=== PATIENT | female | born 1935 | race Caucasian/White ===

== ENCOUNTER 2018-10-18 01:52 | Inpatient (IN) | payer MEDICARE, MEDICAID ==
[~2018-10-18] VITALS: Ht 160 cm; Wt 73.0 kg
--- NOTE | 2018-10-18 02:02 | NUR ---
PT [id number] FROM HOME C/O NONRADIATING SHARP CP X 1 HOUR. DENIES SOB, HAS HX OF HI. 0/10 PAIN GIVEN NITRO X 1 AND ASA 325MG BEAD MAKER. PT AOX4. NAD NOTED. RESP EVEN AND UNLABORED. DENIES PAIN NOW. PT ON MONITOR IN BED 2. WILL CONTINUE TO MONITOR.
--- NOTE | 2018-10-18 02:09 | NUR ---
TECH AT BEDSIDE FOR EKG
--- NOTE | 2018-10-18 02:13 | NUR ---
FAMILY AT BEDSIDE
--- NOTE | 2018-10-18 02:20 | NUR ---
PHLEB AT BEDSIDE FOR LAB DRAW
--- NOTE | 2018-10-18 02:31 | NUR ---
RADIOLOGY AT BEDSIDE FOR XRAY
[2018-10-18 02:47] LABS: CALCIUM, SERUM 9.5 mg/dL (8.5-10.1); CARBON DIOXIDE 27 mmol/L (21-32); CHLORIDE 102 mmol/L (98-107); GLUCOSE 143 mg/dL (74-106); POTASSIUM 4.5 mmol/L (3.5-5.1); SODIUM SERUM 139 mmol/L (136-145); UREA NITROGEN, BLOOD 16 mg/dL (7-18)
[2018-10-18 02:49] LABS: BASOPHILS # (AUTO) 0.1 /CMM (0.0-0.2); BASOPHILS % (AUTO) 0.7 % (0.0-2.0); EOSINOPHILS % (AUTO) 2.3 % (0.0-6.0); HEMATOCRIT 38 % (33-45); HEMOGLOBIN 12.5 g/dL (11.5-14.8); LYMPHOCYTES # (AUTO) 2.4 /CMM (0.8-4.8); LYMPHOCYTES % (AUTO) 24.4 % (20.0-44.0); MEAN CORPUSCULAR HGB CONC 33 g/dl (31.0-36.0); MEAN CORPUSCULAR VOLUME 82 fL (82-100); MONOCYTES # (AUTO) 0.7 /CMM (0.1-1.30); MONOCYTES % (AUTO) 6.9 % (2.0-12.0); NEUTROPHILS # (AUTO) 6.3 /CMM (1.8-8.9); NEUTROPHILS % (AUTO) 65.7 % (43.0-81.0); PLATELET COUNT (AUTO) 284 /CMM (150-450); RED BLOOD CELL COUNT(AUTO) 4.67 MIL/uL (4.0-5.2); WHITE BLOOD COUNT (AUTO) 9.6 K/uL (4.3-11.0)
[2018-10-18 03:00] LABS: ALANINE AMINOTRANSFERASE 34 U/L (12-78); ALBUMIN 3.7 g/dL (3.4-5.0); ALKALINE PHOSPHATASE 70 U/L (46-116); ASPARTATE AMINOTRANSFERASE 17 U/L (15-37); B-TYPE NATRIURETIC PEPTIDE 366 PG/ML (0-125); BILIRUBIN,TOTAL 0.2 mg/dL (0.2-1.0); TOTAL PROTEIN, SERUM 7.6 g/dL (6.4-8.2)
--- NOTE | 2018-10-18 03:05 | NUR ---
PT WILL GO TO RM 309-2
--- NOTE | 2018-10-18 03:26 | NUR ---
REPORT GIVEN TO BRAD VALENCIA FOR PARAM
[2018-10-18] MEDS ORDERED: ASPIRIN 325 MG TABLET PO ONE (03:30)
[2018-10-18] MEDS ORDERED: ASPIRIN 325 MG TABLET ONE (03:32)
[2018-10-18 04:00] VITALS: BP 134/67
--- NOTE | 2018-10-18 04:15 | NUR ---
RN OPENING NOTES Pt ARRIVED TO THE FLOOR VIA ER KAREN. Pt WAS ABLE TO WALK WITH STEADY GAIT TO ROOM BED. Pt IS A/OX4, VERBAL, UZBEK SPEAKING ONLY. DAUGHTER IN LAW AT BEDSIDE ABLE TO TRANSLATE FOR Pt. NO S/S OF ACUTE DISTRESS OR SOB NOTED. ON TELE MONITOR, READING SR 64. NO C/O CP AT THIS TIME. IV ACCESS ON R HAND #20G, SL. SAFETY MEASURES IN PLACE. BED LOW, LOCKED, HOB ELEVATED, SIDE RAILS UP, CALL LIGHT AND BEDSIDE TABLE WITHIN REACH. BED ALARM ON. WILL CONTINUE TO MONITOR Pt's CONDITION AND SAFETY THROUGHOUT THE NIGHT.
[2018-10-18 05:00] VITALS: BP 134/67
[2018-10-18] MEDS ORDERED: MORPHINE SULFATE INJ 2 MG/ML DISP.SYRIN IV PRN (05:00)
[2018-10-18] MEDS ORDERED: ONDANSETRON HCL/PF 4 MG/2 ML VIAL IVP PRN (05:00)
[2018-10-18] MEDS ORDERED: ACETAMINOPHEN 325 MG TABLET PO PRN (05:00)
[2018-10-18] MEDS ORDERED: MAGNESIUM HYDROXIDE 30 ML UDC PO PRN (05:00)
[2018-10-18] MEDS ORDERED: CLONIDINE HCL 0.1 MG TABLET PO PRN (05:00)
[2018-10-18] MEDS ORDERED: TEMAZEPAM 7.5 MG CAPSULE PO PRN (05:00)
[2018-10-18] MEDS ORDERED: Z GUARD REMEDY 2 OZ OINT TP PRN (05:00)
[2018-10-18] MEDS ORDERED: ASPI-605 PO (05:17)
[2018-10-18] MEDS ORDERED: CLOP75TA15 PO (05:17)
--- NOTE | 2018-10-18 06:40 | NUR ---
RN CLOSING NOTES NO SIGNIFICANT CHANGES IN Pt's CONDITION. Pt REMAINS STABLE AT THIS TIME. NO S/S OF ACUTE DISTRESS OR SOB NOTED DURING THE NIGHT. Pt IS AWAKE, RESTING IN BED. RESPIRATIONS EVEN AND UNLABORED. NO C/O CP AT THIS TIME. WILL ENDORSE TO DAYSHIFT RN FOR Pt's PARAM. TELE READING SR 70.
[2018-10-18 07:16] LABS: BASOPHILS % (AUTO) 0.5 % (0.0-2.0); EOSINOPHILS % (AUTO) 1.9 % (0.0-6.0); HEMATOCRIT 34 % (33-45); HEMOGLOBIN 11.2 g/dL (11.5-14.8); LYMPHOCYTES # (AUTO) 2.5 /CMM (0.8-4.8); LYMPHOCYTES % (AUTO) 29.8 % (20.0-44.0); MEAN CORPUSCULAR HGB CONC 33 g/dl (31.0-36.0); MEAN CORPUSCULAR VOLUME 83 fL (82-100); MONOCYTES # (AUTO) 0.7 /CMM (0.1-1.30); MONOCYTES % (AUTO) 8.5 % (2.0-12.0); NEUTROPHILS # (AUTO) 4.9 /CMM (1.8-8.9); NEUTROPHILS % (AUTO) 59.3 % (43.0-81.0); PLATELET COUNT (AUTO) 245 /CMM (150-450); RED BLOOD CELL COUNT(AUTO) 4.13 MIL/uL (4.0-5.2); WHITE BLOOD COUNT (AUTO) 8.2 K/uL (4.3-11.0)
[2018-10-18 07:28] LABS: ALANINE AMINOTRANSFERASE 29 U/L (12-78); ALBUMIN 3.3 g/dL (3.4-5.0); ALKALINE PHOSPHATASE 57 U/L (46-116); ASPARTATE AMINOTRANSFERASE 14 U/L (15-37); CALCIUM, SERUM 8.9 mg/dL (8.5-10.1); CARBON DIOXIDE 26 mmol/L (21-32); CHLORIDE 103 mmol/L (98-107); CREATININE 0.9 mg/dL (0.6-1.3); GLUCOSE 115 mg/dL (74-106); PHOSPHORUS 3.8 mg/dL (2.5-4.9); POTASSIUM 4.5 mmol/L (3.5-5.1); SODIUM SERUM 139 mmol/L (136-145); TOTAL PROTEIN, SERUM 6.7 g/dL (6.4-8.2); UREA NITROGEN, BLOOD 15 mg/dL (7-18)
[2018-10-18 07:32] LABS: IRON, SERUM 36 ug/dl (50-175); TOTAL IRON BINDING CAPACITY 268 ug/dl (250-450)
[2018-10-18 07:39] LABS: CHOLESTEROL 209 mg/dL (<200); HDL CHOLESTEROL 35 mg/dL (40-60); LDL 144 mg/dL (0-99); TRIGLYCERIDES 129 mg/dL (30-150)
[2018-10-18 07:41] LABS: BILIRUBIN,TOTAL 0.2 mg/dL (0.2-1.0)
[2018-10-18] MEDS: PANTOPRAZOLE 40 MG TABLET.DR PO SCH (07:56)
[2018-10-18 08:00] VITALS: BP 121/61
--- NOTE | 2018-10-18 08:09 | NUR ---
ALTERATIONS SUPERVISOR OPENING NOTES PATEINT RECEIVED IN BED AND AWAKE. A/O X4, NO SOB OR ACUTE DISTRESS NOTED. PATIENT STATES HAVING NO CHEST PAIN AT THIS TIME. R HAND #20 SL INTACT AND PATENT. RESPIRATIONS EVEN AND UNLABORED. ON TELE SR 60'S. WILL CONTINUE TO MONITOR.
[2018-10-18] MEDS ORDERED: DOCUSATE SODIUM 100 MG CAPSULE PO SCH (09:00)
[2018-10-18] MEDS ORDERED: ASPIRIN EC 325 MG TABLET.DR PO SCH (09:00)
[2018-10-18] MEDS ORDERED: METO-358 PO (09:04)
[2018-10-18] MEDS ORDERED: ROSU20TA2 PO (09:04)
[2018-10-18] MEDS ORDERED: DOCU-270 PO (09:04)
[2018-10-18] MEDS ORDERED: CLON0.1T PO (09:04)
[2018-10-18] MEDS ORDERED: VITAMIN (09:04)
[2018-10-18] MEDS ORDERED: SITA1TAB2 PO (09:04)
[2018-10-18] MEDS ORDERED: FERR325T23 PO (09:04)
[2018-10-18] MEDS ORDERED: FENO145T35 PO (09:04)
[2018-10-18 09:16] LABS: THYROID STIMULATING HORMONE 1.683 uIU/mL (0.358-3.74)
[2018-10-18] MEDS ORDERED: IBUP-1953 PO (09:16)
[2018-10-18] MEDS: CLOPIDOGREL BISULFATE 75 MG TABLET PO SCH (09:29)
[2018-10-18] MEDS: LOSARTAN POTASSIUM 50 MG TABLET PO SCH (09:29)
[2018-10-18] MEDS: ASPIRIN EC 81 MG TABLET.DR PO SCH (09:29)
[2018-10-18] MEDS: METFORMIN 500 MG TABLET PO SCH ×2 (11:17→17:00)
[2018-10-18] MEDS: LINAGLIPTIN 5 MG TABLET PO SCH (11:17)
[2018-10-18] MEDS: ATORVASTATIN 40 MG TABLET PO SCH (11:17)
[2018-10-18] MEDS: FENOFIBRATE NANOCRYS (145 MG) 145 MG TABLET PO SCH (11:17)
[2018-10-18 12:00] VITALS: BP 124/64
[2018-10-18] MEDS ORDERED: IOHEXOL-350 100 ML VIAL IV ONE (12:00)
[2018-10-18] MEDS ORDERED: METOPROLOL TARTRATE INJ 5 MG/5 ML AMPUL IVP ONE (12:30)
[2018-10-18] MEDS ORDERED: NITROGLYCERIN 0.4 MG/TAB BOTTLE SL ONE (12:30)
[2018-10-18] MEDS ORDERED: METOPROLOL TARTRATE INJ 5 MG/5 ML AMPUL ONE ×2 (12:30→12:48)
[2018-10-18] MEDS: METOPROLOL TARTRATE 50 MG TABLET PO SCH ×2 (13:36→17:58)
[2018-10-18] MEDS: SOD FERRIC GLUC 125 MG in IV NS 0.9% 100 ML IV SCH (15:55)
[2018-10-18 16:00] VITALS: BP 99/50
--- NOTE | 2018-10-18 17:00 | NUR ---
MS SALINAS NOTE BP MEDS HELD BEFORE DIALYSIS TREATMENT. 1700 GLUCOPHAGE HELD D/T ECHO PROCEDURE EARLIER IN DAY PER . Addendum: 10/18/18 at 1922 by LIZZIE ESPINO RN BP MEDS NOT HELD.
--- NOTE | 2018-10-18 19:20 | NUR ---
DIABETES EDUCATION COORDINATOR OPENING NOTES PATEINT IN BED AND AWAKE WITH FAMILY MEMBER AT SIDE. A/O X4, NO SOB OR ACUTE DISTRESS NOTED. PATIENT STATES HAVING NO CHEST PAIN AT THIS TIME. R HAND #20 SL INTACT AND PATENT. RESPIRATIONS EVEN AND UNLABORED. ON TELE SR 60'S. SAFETY MEASURES IN PLACE. CALL LIGHT WITHIN REACH. CARE ENDORSED TO MOTOR VEHICLE LIGHT ASSEMBLER RN. Addendum: 10/18/18 at 1922 by LIZZIE ESPINO RN DIABETES EDUCATION COORDINATOR CLOSING NOTE
--- NOTE | 2018-10-18 19:50 | NUR ---
RETAIL MAINTENANCE TECHNICIAN NOTES RECEIVED PATIENT IN BED AND AWAKE WITH FAMILY MEMBERS AT SIDE. A/O X4, NO SOB OR ACUTE DISTRESS NOTED.EQUATORIAL GUINEAN SPEAKING, PATIENT DENIES CHEST PAIN AT THIS TIME. R HAND #20 SL INTACT AND PATENT. RESPIRATIONS EVEN AND UNLABORED. ON TELE SR 60'S. SAFETY MEASURES IN PLACE. CALL LIGHT WITHIN REACH. BED IN LOW LOCKED POSITION, ASPIRATION PRECAUTION EMPHASIZED, WILL CONTINUE TO MONITOR ACCORDINGLY.
[2018-10-18 20:00] VITALS: BP 140/64
[2018-10-18] MEDS ORDERED: DOXAZOSIN MESYLATE (1 MG) 1 MG TABLET PO SCH (22:00)
[2018-10-19] VITALS: BP 133/60
[2018-10-19] MEDS: METOPROLOL TARTRATE 50 MG TABLET PO SCH ×3 (00:08→12:35)
[2018-10-19 04:00] VITALS: BP 120/64
[2018-10-19 07:02] LABS: BASOPHILS % (AUTO) 0.4 % (0.0-2.0); EOSINOPHILS % (AUTO) 2.9 % (0.0-6.0); HEMATOCRIT 36 % (33-45); HEMOGLOBIN 11.5 g/dL (11.5-14.8); LYMPHOCYTES # (AUTO) 1.8 /CMM (0.8-4.8); LYMPHOCYTES % (AUTO) 21.3 % (20.0-44.0); MEAN CORPUSCULAR HGB CONC 32 g/dl (31.0-36.0); MEAN CORPUSCULAR VOLUME 83 fL (82-100); MONOCYTES # (AUTO) 0.7 /CMM (0.1-1.30); MONOCYTES % (AUTO) 8.5 % (2.0-12.0); NEUTROPHILS # (AUTO) 5.8 /CMM (1.8-8.9); NEUTROPHILS % (AUTO) 66.9 % (43.0-81.0); PLATELET COUNT (AUTO) 240 /CMM (150-450); RED BLOOD CELL COUNT(AUTO) 4.36 MIL/uL (4.0-5.2); WHITE BLOOD COUNT (AUTO) 8.6 K/uL (4.3-11.0)
[2018-10-19 07:16] LABS: ALANINE AMINOTRANSFERASE 28 U/L (12-78); ALBUMIN 3.3 g/dL (3.4-5.0); ALKALINE PHOSPHATASE 57 U/L (46-116); ASPARTATE AMINOTRANSFERASE 14 U/L (15-37); BILIRUBIN,TOTAL 0.3 mg/dL (0.2-1.0); CALCIUM, SERUM 8.8 mg/dL (8.5-10.1); CARBON DIOXIDE 29 mmol/L (21-32); CHLORIDE 104 mmol/L (98-107); CREATININE 0.8 mg/dL (0.6-1.3); GLUCOSE 131 mg/dL (74-106); MAGNESIUM 1.9 mg/dL (1.8-2.4); PHOSPHORUS 4.3 mg/dL (2.5-4.9); POTASSIUM 4.4 mmol/L (3.5-5.1); SODIUM SERUM 140 mmol/L (136-145); TOTAL PROTEIN, SERUM 6.6 g/dL (6.4-8.2); UREA NITROGEN, BLOOD 14 mg/dL (7-18)
--- NOTE | 2018-10-19 07:22 | NUR ---
RN NOTES ALL NEEDS ATTENDED AND MET, SAFETY MEASURES IN PLACE, ABLE TO REST AND SLEEP WITH LONG INTERVALS, PATIENT STATES THAT HER DOCTOR PRESCRIBED AN EYE OINTMENT FOR IRRITATION THAT SHE APPLIED AT NIGHT AT HOME,FORGOT WHAT THE NAME WAS, ENDORSED TO AM NURSE TO FOLLOW UP, ENDORSE FOR CONTINUITY OF CARE.
[2018-10-19 08:00] VITALS: BP 129/51
[2018-10-19] MEDS: FENOFIBRATE NANOCRYS (145 MG) 145 MG TABLET PO SCH (08:20)
[2018-10-19] MEDS: METFORMIN 500 MG TABLET PO SCH ×2 (08:20→09:00)
[2018-10-19] MEDS: ATORVASTATIN 40 MG TABLET PO SCH (08:20)
[2018-10-19] MEDS: PANTOPRAZOLE 40 MG TABLET.DR PO SCH (08:20)
[2018-10-19] MEDS: CLOPIDOGREL BISULFATE 75 MG TABLET PO SCH (08:20)
[2018-10-19] MEDS: LINAGLIPTIN 5 MG TABLET PO SCH (08:21)
[2018-10-19] MEDS: LOSARTAN POTASSIUM 50 MG TABLET PO SCH (08:21)
[2018-10-19] MEDS: ASPIRIN EC 81 MG TABLET.DR PO SCH (08:21)
[2018-10-19] MEDS ORDERED: DOCUSATE SODIUM 100 MG CAPSULE PO SCH (09:00)
--- NOTE | 2018-10-19 09:10 | NUR ---
CLINICAL PHARMACY SPECIALIST NOTES PATIENT AWAKE IN BED, FAMILY AT BEDSIDE. PATIENT ALERT AND ORIENTED X4. NO RESPIRATORY DISTRESS NOTED, NO C/O CHEST PAIN. PATIENT OKAY TO TRANSFER TO MED/SURG PER DR. CROWLEY. PATIENT WITH SR 67. SKIN WARM TO TOUCH. IV SL ON THE RFA #18G, INTACT AND PATENT. PATIENT'S NEEDS ATTENDED. BED ON LOWEST LOCKED POSITION, CALL LIGHT WITHIN REACH. WILL CONTINUE TO MONITOR.
[2018-10-19] MEDS ORDERED: MAGN400O6 PO (09:47)
[2018-10-19] MEDS ORDERED: METO50TA16 PO (09:47)
[2018-10-19] MEDS ORDERED: LOSA50TA3 PO (09:47)
[2018-10-19] MEDS ORDERED: PANT40TA2 PO (09:47)
[2018-10-19] MEDS ORDERED: ONDA4VIA23 IVP (09:47)
[2018-10-19] MEDS ORDERED: CLON0.1T14 PO (09:47)
[2018-10-19] MEDS ORDERED: DOXA1TAB17 PO (09:47)
[2018-10-19] MEDS ORDERED: ACET325T53 PO (09:47)
[2018-10-19] MEDS ORDERED: ALLA266C2 TP (09:47)
[2018-10-19] MEDS ORDERED: TEMA7.5C PO (09:47)
[2018-10-19] MEDS ORDERED: Morphine Sulfate Inj IV (09:47)
[2018-10-19 12:35] VITALS: BP 143/78
--- NOTE | 2018-10-19 13:55 | NUR ---
M/S RN NOTES ROOM AVAILABLE AT [facility] PER CASE MANAGEMENT, ROOM 1327. REPORT GIVEN TO REZA.
[2018-10-19] MEDS: SOD FERRIC GLUC 125 MG in IV NS 0.9% 100 ML IV SCH (14:00)
--- NOTE | 2018-10-19 14:30 | NUR ---
M/S RN NOTES [facility] NOT ADMINISTERED PER CHARGE NURSE, PATIENT BEING TRANSFERRED TO [facility] WILL BE PICKED UP SOON.
--- NOTE | 2018-10-19 15:15 | NUR ---
M/S NET ARCHITECT NOTES PATIENT DISCHARGED IN STABLE CONDITION. PATIENT ALERT AND ORIENTED X4. NO RESPIRATORY DISTRESS. NO C/O CHEST PAIN. SKIN WARM TO TOUCH. IV ACCESS SITE INTACT AND PATENT. PATIENT WITH NO SKIN BREAKDOWN. PATIENT GIVEN DISCHARGE INSTRUCTIONS, VERBALIZED UNDERSTANDING. BELONGINGS ACCOUNTED FOR AND SIGNED. PATIENT TRANSFERRED TO [facility] CATH. PATIENT LEFT WITH PARAMEDICS AND FAMILY.
== END 2018-10-19 15:30 | disposition short-term general hospital (02) | DRG 281 ==
LOC: ER 01:57 → TELE 03:21 → MED 10-19 11:26
PROVIDERS: ADMIT Registered Nurse; ATTEND Registered Nurse
DX: I16.0 Hypertensive urgency (principal); I21.A1 Myocardial infarction type 2; K92.2 Gastrointestinal hemorrhage, unspecified; E11.9 Type 2 diabetes mellitus without complications; D50.9 Iron deficiency anemia, unspecified; E78.5 Hyperlipidemia, unspecified; I10 Essential (primary) hypertension; E66.9 Obesity, unspecified; I25.10 Atherosclerotic heart disease of native coronary artery without angina pectoris; I25.2 Old myocardial infarction; Z79.84 Long term (current) use of oral hypoglycemic drugs; R21 Rash and other nonspecific skin eruption; Z68.28 Body mass index [BMI] 28.0-28.9, adult
CPT/HCPCS: 36415; 71045-TC; 75574; 80048-TC; 80053-TC; 80061-TC; 80076-TC; 83540-TC; 83735-TC; 83880; 84100-TC; 84439-TC; 84443-TC; 84484-TC; 85025-TC; 85730-TC; 87081-TC; 93307-TC; G0378; J2916; J3490; J7030; J7050; Q9967

== ENCOUNTER 2021-07-25 15:22 | Outpatient (CLI) | payer MEDICARE, OTHER ==
[~2021-07-25 15:22] MED LIST: ACET325T53 PO; ALLA266C2 TP; ASPI-605 PO; CLON0.1T14 PO; CLOP75TA15 PO; DOCU-270 PO; DOXA1TAB4 PO; FENO145T21 PO; LOSA50TA3 PO; MAGN400O6 PO; METO50TA16 PO; Morphine Sulfate Inj IV; ONDA4VIA23 IVP; PANT40TA2 PO; ROSU20TA2 PO; SITA1TAB2 PO; TEMA7.5C PO
== END 2021-07-25 23:59 | disposition home or self-care (01) ==
LOC: RAD 15:22
PROVIDERS: ATTEND Family Medicine
DX: Z01.818 Encounter for other preprocedural examination (principal); I70.0 Atherosclerosis of aorta; R91.1 Solitary pulmonary nodule
CPT/HCPCS: 71045-TC

== ENCOUNTER 2025-02-14 13:06 | Emergency (ER) | payer MEDICARE, OTHER ==
[~2025-02-14] VITALS: Ht 160 cm; Wt 62.6 kg
[2025-02-14 14:03] LABS: PLATELET COUNT (AUTO) 374 K/uL (150-450); RED BLOOD CELL COUNT(AUTO) 4.57 MIL/uL (4.0-5.2); RED CELL DISTRIBUTION WIDTH 14.9 % (11.5-15.0); WHITE BLOOD COUNT (AUTO) 15.6 K/uL (4.3-11.0)
[2025-02-14 14:12] LABS: CALCIUM, SERUM 9.1 mg/dL (8.5-10.1); CREATININE 0.6 mg/dL (0.6-1.3); SODIUM SERUM 134 mmol/L (136-145); UREA NITROGEN, BLOOD 13 mg/dL (7-18)
[2025-02-14 14:25] LABS: ASPARTATE AMINOTRANSFERASE 17 U/L (15-37); TOTAL PROTEIN, SERUM 7.5 g/dL (6.4-8.2)
[2025-02-14] MEDS: IV NS 0.9% 500 ML BAG IV ONE (14:30)
[2025-02-14] MEDS: FAMOTIDINE/PF INJ 20 MG/2 ML VIAL IV ONE (14:30)
[2025-02-14] MEDS ORDERED: FAMOTIDINE/PF INJ 20 MG/2 ML VIAL IV ONE (15:30)
[2025-02-14 16:28] VITALS: BP 144/85; TEMP 97.7; O2SAT 96
== END 2025-02-14 16:29 | disposition home or self-care (01) ==
LOC: ER 13:13
DX: R10.84 Generalized abdominal pain (principal); E11.9 Type 2 diabetes mellitus without complications; I11.9 Hypertensive heart disease without heart failure; I25.2 Old myocardial infarction; Z95.5 Presence of coronary angioplasty implant and graft; Z79.899 Other long term (current) drug therapy; Z79.84 Long term (current) use of oral hypoglycemic drugs; Z79.82 Long term (current) use of aspirin
CPT/HCPCS: 99285; 74176; 96374; 71045; 93005; 85025; 80048; 83690; 80076; 36415; 84484 ×2; J1308; J7040